=== PATIENT | male | born 1945 | race Caucasian/White ===

== ENCOUNTER 2018-10-01 06:30 | Observation (INO) | payer MEDICARE ==
[2018-10-01] MEDS ORDERED: traMADol HCl 50 MG TAB ONE (07:06)
[2018-10-01] MEDS ORDERED: Ondansetron PF 4 MG/2 ML Vial ONE ×2 (07:06→10:04)
[2018-10-01 07:08] LABS: #Eosinphils 0.1 thou/uL (0.0-0.7); #Lymphocytes 1.1 thou/uL (1.20-3.40); #Monocytes 0.9 thou/uL (0.11-0.59); #Neutrophils 8.7 thou/uL (1.40-6.50); %Basophils 0.3 % (0.0-1.0); %Eosinophils 1.4 % (0.0-10.0); %Lymphocytes 10.1 % (21.0-51.0); %Monocytes 8.3 % (0.0-10.0); Hemoglobin 16.2 g/dL (14.0-18.0); Mean Corpuscular HGB CONC 34.5 g/dL (32.0-36.0); Mean Corpuscular Hemoglobin 30.5 pg (27.0-31.0); Mean Corpuscular Volume 88.6 fL (78.0-98.0); Mean Platelet Volume 8.5 fL (7.4-10.4); Platelet Count 157 thou/uL (130-400); RBC Distribution Width 11.9 % (11.5-14.5); White Blood Cell (WBC) Count 10.9 thou/uL (4.8-10.8)
[2018-10-01] MEDS ORDERED: Fentanyl 100 MCG/2 ML VIAL ONE (07:14)
[2018-10-01 07:33] LABS: ALT (SGPT) 21 U/L (8-55); AST (SGOT) 21 U/L (5-34); Albumin 4.4 g/dL (3.4-4.8); Alkaline Phosphatase 70 U/L (40-150); Anion Gap 15 mmol/L (10-20); BUN (Urea Nitrogen) 25 mg/dL (8.4-25.7); Bilirubin, Total 1.2 mg/dL (0.2-1.2); Calc. Creatinine Clearance 0 mL/min (70-130); Calcium 9.7 mg/dL (7.8-10.44); Carbon Dioxide 23 mmol/L (23-31); Chloride 104 mmol/L (98-107); Estimated GFR-MDRD 51; Globulin 2.7 g/dL (2.4-3.5); Glucose 113 mg/dL (83-110); Lipase 34 U/L (8-78); Potassium 3.7 mmol/L (3.5-5.1); Protein, Total 7.1 g/dL (5.8-8.1); Sodium 138 mmol/L (136-145)
[2018-10-01] MEDS ORDERED: Ketorolac Tromethamine 30 MG/ML VIAL ONE ×2 (07:34→09:07)
--- NOTE | 2018-10-01 08:12 | CT ---
CT abdomen noncontrast CT pelvis noncontrast: (Urolithiasis protocol) DATE: 10/01/2018 HISTORY: 73 year old male with sudden onset left flank pain. COMPARISON: None available TECHNIQUE: IV injection of iodinated contrast media: None Oral contrast media: None FINDINGS: Other than for urolithiasis, the lack of IV and oral contrast limits the evaluation. There is a 4 x 3 x 5 mm calculus lodged at the most distal portion of the left ureter at the UVJ, jus t external to the bladder lumen. There is mild left hydroureteronephrosis. There is fluid surrounding the left kidney in the perirenal space. This could represent extravasated urine from pyel ocalyceal blowout. Punctate 1 or 2 mm calculus at left renal lower pole calyx. 2 x 4 x 4 mm calculus at right lower pole calyx. No right-sided hydronephrosis. No abdominal aortic aneurysm. Larg e number of small focal round hypodense lesions throughout the left and right lobes of the liver. At least many of them are cysts. Some are too small to characterize. Herniation of a quarter or third of the stomach into the thoracic cavity. No small bowel dilation. Large number of diverticula throughout the descending and sigmoid colon without acute diverticulitis. Within the limitations of n oncontrast scan, no gross abnormality identified involving adrenals, pancreas, spleen,. Diffusely high density material filling the partially distended urinary bladder probably represents blood. IMPRESSION: 1. Left-sided obstructive uropathy. A 5 mm calculus at the left ureterovesical junction causing mild left hydroureteronephrosis, and moderate left perirenal fluid suggestive of pyloric calyceal blowout. 2. Evidence for hematuria: Blood filling urinary bladder lumen. 3. Moderate size hiatal hernia. 4. Large number of hypodense lesions throughout the liver, at least many of them representing cysts. 5. Bilateral mild nephrolithiasis.
[2018-10-01] MEDS ORDERED: Promethazine HCl 25 MG/ML VIAL ONE (10:36)
[2018-10-01 11:21] LABS: Bacteria/HPF None Seen HPF (None Seen); Bilirubin Negative (Negative); Blood, Urine Negative (Negative); Clarity Clear (Clear); Glucose, Urine (Dipstick) Normal (Negative); Leukocyte Negative Leu/uL (Negative); Nitrite Negative (Negative); Protein, Urine (Dipstick) 50 mg/dL (Neg-Trace); Urobilinogen Normal mg/dL (Less than 2); WBC/HPF 0-3 HPF (0-3)
[2018-10-01] MEDS ORDERED: hydrALAZINE 20 MG/ML VIAL SLOW IVP PRN (12:25)
[2018-10-01] MEDS ORDERED: cloNIDine 0.1 MG TAB PO PRN (12:25)
[2018-10-01] MEDS ORDERED: Acetaminophen 325 MG TAB PO PRN (12:25)
[2018-10-01] MEDS ORDERED: Ondansetron PF 4 MG/2 ML Vial IVP PRN (12:25)
[2018-10-01] MEDS ORDERED: Ondansetron ODT 4 MG TAB PO PRN (12:25)
[2018-10-01] MEDS ORDERED: HYDROcodone/Acetaminophen 5/325 mg Tablet PO PRN (12:25)
[2018-10-01 12:27] VITALS: BMI 26.9
[2018-10-01] MEDS: NS 0.9% w/ 20 MEQ KCL 1,000 ML/1,000 ML BAG IV SCH (14:54)
[2018-10-01] MEDS ORDERED: Ketorolac Tromethamine 30 MG/ML VIAL IVP PRN (16:16)
[2018-10-01] MEDS ORDERED: traMADol HCl 50 MG TAB PO PRN (16:17)
--- NOTE | 2018-10-01 17:40 | HP ---
PRIMARY CARE PHYSICIAN: Dr. Guthrie. CHIEF COMPLAINT: Left flank pain. HISTORY OF PRESENT ILLNESS: Mr. Rodriguez is a very pleasant 73-year-old gentleman, who has a history of hypertension. He also has a history of nephrolithiasis in the past. He says that he was doing fine until about 3 a.m. this morning, when he woke up from sleep with some intense pain in the left flank. He says that he went back to sleep and tried to stave off the pain, but then at 4 a.m., the pain got even worse and he told his that he better come to the hospital to have it evaluated. He denies any fevers or chills, but he says he did feel dehydrated. Apparently, he had been outside pretty much most of the day earlier, doing some roping. He came to the ER and a CT scan of the abdomen was done, which showed area of nephrolithiasis in the left ureterovesical junction causing mild hydronephrosis and he is being admitted for further evaluation. The patient has had kidney stones in the past, and since that he has had to have surgery both on the right and left kidneys in order to remove the stones in the past. He is not sure what type of stones he has, but was told to drink fluids with citrus such as ray and limes to help prevent the stones from forming. The patient denies any dysuria or hematuria. He also has a history of bicuspid aortic valve. He denies any chest pain or shortness of breath, etc. REVIEW OF SYSTEMS: CONSTITUTIONAL: He denies any fevers, but he just started having some chills here in the ER. No weight loss. HEENT: He denies any headache. No dizziness. No visual changes. No sore throat. No rhinorrhea or neck pain. No adenopathy. PULMONARY: No hemoptysis. No cough. No wheezing. CARDIOVASCULAR: He denies any chest pain. No shortness of breath. No PND. No orthopnea. GASTROINTESTINAL: He has had the left flank pain, but no abdominal pain. He has had nausea and vomiting. He says he has vomited about 3 to 4 times. No hematemesis. No melena. GENITOURINARY: No urinary frequency. No hematuria that he has noticed. No dysuria. MUSCULOSKELETAL: No muscle pains or joint pains. NEUROLOGIC: No focal weakness. No seizures. PSYCHIATRIC: No symptoms of anxiety or depression. SKIN AND INTEGUMENT: No skin changes. No rash. LABORATORY DATA: Lab results; the white blood cell count is 10.9, hemoglobin 16.2, hematocrit is 47, platelet count is 157. Sodium 138, potassium 3.7, chloride is 104, CO2 is 23, BUN of 25, creatinine 1.37, glucose is 113. His liver function tests are normal. ASSESSMENT: This is a pleasant 73-year-old gentleman, who presents with severe left flank pain. He also has CT findings demonstrating left nephrolithiasis. 1. Left-sided nephrolithiasis. He will be admitted due to severe pain and we will also need to rule out infection. He will be started on IV fluids and IV antiemetics as well as analgesics. Urology has been consulted. We will also get urine and blood cultures and rule out infection. 2. Hypertension. Once he is keeping foods down, we will restart his home medications and include p.r.n. medications as needed. 3. History of bicuspid aortic valve. He says he is status post aortic valve replacement. It does not appear he is on anticoagulation. He may have a bioprosthetic valve. This appears to be clinically stable. He will be placed on deep venous thrombosis and gastrointestinal prophylaxis. Job ID: [id number]
[2018-10-01] MEDS ORDERED: Calcium Carbonate 500 MG ChewTAB PO PRN (18:20)
[2018-10-01] MEDS ORDERED: Simvastatin 5 MG TAB PO SCH (21:00)
--- NOTE | 2018-10-01 21:17 | CON ---
DATE OF CONSULTATION: 10/01/2018 REASON FOR CONSULTATION: Left ureteral stone. REQUESTING PHYSICIAN: Dr. Mitch Miranda. HISTORY OF PRESENT ILLNESS: Mr. Rodriguez is a 73-year-old male, who recently relocated to the [facility]. He has a history of urolithiasis. This is the third time he has had a ureteral stone. His prior urologist was Dr. Josh Bueno in [place], [place]. During the night, the patient developed acute onset of left-sided flank pain associated with nausea and vomiting. He presented to the [facility] Emergency Department. At which point, a CT scan was performed, which demonstrated a 5 x 3 mm left ureterovesical junction calculus. There was significant left hydroureteronephrosis present. He had intractable pain as well as nausea and was therefore admitted to the Hospitalist Service and Urology was consulted. The patient currently states his pain is well controlled. It is 2/10. His nausea has resolved after the most recent dose of antiemetic. No fever or chills. He reports approximately one month ago, he noticed some left-sided flank discomfort, although it was not severe. He said that while he was active, the discomfort would often radiate to his left testicle and this has occurred on and off over the past month. The patient denies any chest pain or shortness of breath. He has no other complaints. REVIEW OF SYSTEMS: Full 12-point review of systems was performed and is negative other than that mentioned in HPI. PAST MEDICAL HISTORY: Coronary artery disease, status post bypass as well as valve replacement; hypertension. PAST SURGICAL HISTORY: He has had a coronary artery bypass graft with repair of an ascending aortic aneurysm as well as aortic valve replacement. He has had a cervical neck surgery x2, bilateral shoulder surgery, and a right carpal tunnel surgery. FAMILY HISTORY: Noncontributory. SOCIAL HISTORY: No alcohol, tobacco, or illicit drugs. He lives with his of 54 years. MEDICATIONS: 1. 81 mg aspirin. 2. Omeprazole 20 mg. 3. Potassium 99 mg once a day. 4. 6 mg once a day. 5. Metoprolol 25 mg once a day. 6. Synthroid 112 mcg once a day. 7. Simvastatin 5 mg once a day. ALLERGIES: ALEVE, HYDROCODONE, MORPHINE, AND PENICILLIN. PHYSICAL EXAMINATION: VITAL SIGNS: Pulse 65, respirations 18, temperature 97.6. Pain 2/10. Oxygen saturation 98% on room air, and blood pressure is 133/76. GENERAL: He is alert and oriented x3. No apparent distress. HEENT: Normocephalic and atraumatic. NECK: Supple. No masses or lymphadenopathy. CARDIOVASCULAR: Regular rate and rhythm. PULMONARY: Breathing unlabored. No wheezing. ABDOMEN: Soft, nontender/nondistended. No masses or organomegaly. No suprapubic tenderness to palpation. No CVA tenderness. EXTREMITIES: Warm and well perfused. No edema. NEUROLOGIC: No focal deficits. RADIOLOGY DATA: CT of the abdomen and pelvis demonstrates a 3 x 5 mm left ureterovesical junction calculus causing mild left hydroureteronephrosis and left perinephric stranding. LABORATORY DATA: White blood cell count 10.9, hemoglobin 16.2, hematocrit 47, platelets 157. Sodium 138, potassium 3.7, chloride 104, bicarb 23, BUN 25, creatinine 1.37. Urinalysis significant only for 4 to 6 red blood cells per high-power field. ASSESSMENT: A 73-year-old male with left 5 mm ureteral stone and hydronephrosis. PLAN: I reviewed the natural history and clinical implications of ureteral stones with the patient and his in detail. I discussed the size of the stone as it relates to the chance of spontaneous passage. His statistical chance of passing the stone is greater than 70%. At this point, his pain is well controlled as well as his nausea. He can go ahead and eat. He will be made n.p.o. after midnight. If he remains comfortable throughout the night until tomorrow, we will likely discharge him home on a trial of passage, but if he has another episode of severe pain, we discussed options including ureteral stent placement and ureteroscopy with basket extraction, given the fact that the hospital does not have a holmium laser and it is rendered on a [id number] basis, laser lithotripsy tomorrow would not likely be a possibility. We will re-evaluate tomorrow. Thank you for allowing me to participate in the care of this patient. Job ID: [id number]
[2018-10-01] MEDS ORDERED: Levothyroxine Sodium 112 MCG TAB PO SCH (22:00)
[2018-10-02] MEDS: NS 0.9% w/ 20 MEQ KCL 1,000 ML/1,000 ML BAG IV SCH ×2 (00:28→11:26)
[2018-10-02 05:17] LABS: #Eosinphils 0.3 thou/uL (0.0-0.7); #Lymphocytes 1.6 thou/uL (1.20-3.40); #Monocytes 0.6 thou/uL (0.11-0.59); #Neutrophils 4.5 thou/uL (1.40-6.50); %Basophils 0.4 % (0.0-1.0); %Eosinophils 4.1 % (0.0-10.0); %Lymphocytes 22.5 % (21.0-51.0); %Monocytes 8.7 % (0.0-10.0); %Neutrophils 64.3 % (42.0-75.0); Hemoglobin 13.3 g/dL (14.0-18.0); Mean Corpuscular HGB CONC 34.4 g/dL (32.0-36.0); Mean Corpuscular Hemoglobin 31.2 pg (27.0-31.0); Mean Corpuscular Volume 90.6 fL (78.0-98.0); Mean Platelet Volume 8.4 fL (7.4-10.4); Platelet Count 127 thou/uL (130-400); RBC Distribution Width 11.9 % (11.5-14.5); Red Blood Cell (RBC) Count 4.28 mill/uL (4.70-6.10)
[2018-10-02 05:31] LABS: Anion Gap 10 mmol/L (10-20); BUN (Urea Nitrogen) 20 mg/dL (8.4-25.7); Calc. Creatinine Clearance 64 mL/min (70-130); Calcium 8.4 mg/dL (7.8-10.44); Carbon Dioxide 23 mmol/L (23-31); Chloride 109 mmol/L (98-107); Estimated GFR-MDRD 61; Glucose 86 mg/dL (83-110); Potassium 3.8 mmol/L (3.5-5.1); Sodium 138 mmol/L (136-145)
[2018-10-02] MEDS ORDERED: TADALAFIL 6 MG PO SCH (09:00)
[2018-10-02] MEDS ORDERED: Enoxaparin Sodium 40 MG/0.4 ML SYRINGE SC SCH (09:00)
[2018-10-02] MEDS ORDERED: Aspirin 81 mg Enteric Coated Tablet PO SCH (09:00)
[2018-10-02 09:22] VITALS: BP 107/62; TEMP 98.5
--- NOTE | 2018-10-02 13:58 | PDOC.PN ---
- Subjective Encounter Start Date: 10/02/18 Encounter Start Time: 13:56 Mr. Rodriguez was seen today in follow-up of Nephrolithiasis. He does not have any new complaints. He is feeling better today. - Objective Resuscitation Status - Order Detail: 10/01/18 11:35 Resuscitation Status Routine Resuscitation Status: DNAR: NO Resuscitation Discussed with: Discussed with the patient MAR Reviewed: Yes Vital Signs & Weight: Vital Signs (12 hours) Temp Pulse Resp BP Pulse Ox 10/02/18 08:17 98.5 F 60 16 107/62 94 L 10/02/18 04:17 97.9 F 56 L 18 123/67 97 Weight Weight 177 lb 8 oz I&O: 10/01/18 10/02/18 10/03/18 06:59 06:59 06:59 Intake Total 1940 Output Total 700 Balance 1240 Result Diagrams: 10/02/18 04:28 10/02/18 04:28 Phys Exam - Physical Examination HEENT: PERRLA Respiratory: no wheezing, no rales, no rhonchi, clear to auscultation bilateral Cardiovascular: RRR, no significant murmur, no rub Gastrointestinal: soft, non-tender, no distention, positive bowel sounds Musculoskeletal: no edema, pulses present Neurological: non-focal Dx/Plan (1) Left nephrolithiasis Code(s): N20.0 - CALCULUS OF KIDNEY Status: Acute (2) Hypertension Code(s): I10 - ESSENTIAL (PRIMARY) HYPERTENSION Status: Chronic - Plan * HTN- blood pressure is stable. * Nephrolithiasis- Urology has recommended Flomax * Stable for discharge home
--- NOTE | 2018-10-02 15:00 | DIS ---
DATE OF ADMISSION: 10/01/2018 DATE OF DISCHARGE: 10/02/2018 DISCHARGE DISPOSITION: Home. PRIMARY DISCHARGE DIAGNOSES: 1. Left nephrolithiasis. 2. Hypertension. 3. History of bicuspid aortic valve, status post aortic valve replacement. DISCHARGE MEDICATIONS: Include, 1. Flomax 0.4 mg daily. 2. Tylenol No.3 one tablet q.4 hours as needed for pain. 3. Tadalafil 6 mg daily. 4. Simvastatin 5 mg at bedtime. 5. Potassium 99 mg daily. 6. Omeprazole 20 mg daily. 7. Metoprolol succinate 25 mg p.o. daily. 8. Levothyroxine 112 mcg p.o. at bedtime. 9. Glucosamine sulfate 1200 mg daily. 10. Vitamin D3 2000 units daily. 11. Aspirin 81 mg daily. 12. Vitamin C 125 mg p.o. daily. PROCEDURES DONE DURING ADMISSION: He had a CT scan of the abdomen and pelvis, showing left-sided obstructive uropathy. There was a 5 mm calculus at the left ureterovesical junction causing some mild left hydroureteronephrosis. There was evidence for hematuria due to blood filling the urinary bladder lumen and a moderate-sized hiatal hernia. A large amount of hypodense lesions throughout the liver representing cyst and mild bilateral nephrolithiasis. CONSULTANTS DURING ADMISSION: The patient was seen by Dr. Sabillon. HOSPITAL COURSE: Mr. Rodriguez is a pleasant 73-year-old gentleman, who was admitted to the hospital with complaints of left-sided flank pain. He has a history of nephrolithiasis in the past and the pain was so severe that he had to seek medical attention. CT scan in the ER revealed a left renal stone. Urinalysis was negative, and there was no evidence of infection. He was evaluated by our urologist on-call, and the following day, the pain was improved. He was placed on Flomax, and instructed to follow up with Urology as instructed by Dr. Sabillon. He is also to follow up with his primary care physician in 1 to 2 weeks as well. Job ID: [id number]
--- NOTE | 2018-10-02 21:22 | PRG ---
DATE OF SERVICE: 10/02/2018 SUBJECTIVE: Mr. Rodriguez is feeling much better. He has had no other episodes of left flank or lower quadrant pain. No nausea or vomiting. No fever or chills. No complaints. OBJECTIVE: VITAL SIGNS: Temperature is 98.5, pulse 60, blood pressure 107/62, oxygen saturation 94% on room air. GENERAL: He is alert and oriented x3. No apparent distress. CARDIOVASCULAR: Regular rate and rhythm. PULMONARY: Breathing unlabored. ABDOMEN: Soft, nontender, and nondistended. No CVA tenderness. No suprapubic tenderness to palpation. EXTREMITIES: Warm, well perfused. No edema. NEUROLOGICAL: No focal deficits. LABORATORY DATA: White blood cell count 7, hemoglobin 13.3, hematocrit 38.8, platelets 127. Sodium 138, potassium 3.8, chloride 109, bicarb 23, BUN 20, creatinine 1.17. ASSESSMENT: A 73-year-old male with distal 5 mm left ureteral calculus and hydronephrosis. PLAN: The patient has not passed a stone that had been straining his urine. His pain is, however, well controlled. He has had no other episodes of pain. I discussed options including continued outpatient trial of passage versus definitive management. The patient elects for the former. The patient can be discharged home on Flomax and pain medicine and he will be scheduled for outpatient followup with Urology. Thank you for allowing me to participate in the care of this patient. Job ID: [id number]
--- NOTE | 2018-10-08 11:54 | EKG ---
Test Reason : Blood Pressure : / mmHG Vent. Rate : 061 BPM Atrial Rate : 061 BPM P-R Int : 242 ms QRS Dur : 102 ms QT Int : 440 ms P-R-T Axes : 033 -12 031 degrees QTc Int : 442 ms Sinus rhythm with 1st degree A-V block Minimal voltage criteria for LVH, may be normal variant Borderline ECG Confirmed by ADELINA ALVAREZ ([id number]), editor house organ ERNESTO OQUENDO ([id number]) on 10/08/2018 11:53:53 AM Referred By: Confirmed By:ADELINA ALVAREZ
== END 2018-10-02 15:09 | disposition home or self-care (01) ==
LOC: ERS 06:30 → 2SW 10:57
PROVIDERS: ADMIT Internal Medicine; ATTEND Internal Medicine
DX: N13.2 Hydronephrosis with renal and ureteral calculous obstruction (principal); E86.0 Dehydration; Z88.0 Allergy status to penicillin; Z88.5 Allergy status to narcotic agent; Z88.8 Allergy status to other drugs, medicaments and biological substances; Z79.82 Long term (current) use of aspirin; Z79.899 Other long term (current) drug therapy; Z95.4 Presence of other heart-valve replacement
CPT/HCPCS: 74176; 80048; 80053; 83690; 84484; 85025 ×2; 93005; 96361 ×3; 96365; 96367; 96372; 96375; 96376; 97139 ×2; 99285; G0378 ×3; 36415; 81003; 81015; J1650; J1885; J1956; J2405; J2550; J3010; J3480